=== PATIENT | female | born 1955 | race Caucasian/White ===

== ENCOUNTER 2020-09-07 19:04 | Inpatient (IN) | payer OTHER ==
[~2020-09-07] VITALS: Ht 157.5 cm; Wt 130.6 kg
--- NOTE | 2020-09-07 19:10 | NUR ---
[facility] FROM [place] FOR PE STUDIES. PT TO ED IN [place] TODAY W/ CO SOB X "A FEW WEEKS" HX COPD AND CHF. PT WEARS 4L O2 BY NC. SPO2 80'S ON BASELINE O2 UPON ARRIVAL IN [place]. DDIMER POSITIVE AT PRIOR FACILITY. PT GIVEN ASA, LOVENOX, BREATHING TX, AND ZITHROMAX BRAND LEADER. PT REPORTS HAVING TO USE HER RESCUE INHALER UP TO FOUR TIMES/DAY W LITTLE IMPROVEMENT IN SOB OR WORK OF BREATHING. UPON ARRIVAL PT A&OX4, RESPIRATIONS RAPID AND MODERATELY LABORED. PT SPEAKING IN 5 WORD SENTENCES WITH FREQUENT FORCED EXHALATION. SPO2 90-91% ON 5L BY OXYMASK. RLL COARSE; +1 NON-PITTING BLE EDEMA. PT REPORTS IMPROVED S/S AFTER RX GIVEN IN [place]. PT DENIES CP, LOWER EXTREMITY PAIN OR SWELLING, OR FEVER. REPORTS PRODUCTIVE COUGH WITH YELLOW SPUTUM SINCE MARCH. BP/SPO2/ECG MONITORING IN PLACE. SINUS TACH ON MONITOR. EKG COMPLETED UPON ARRIVAL.
[2020-09-07] MEDS ORDERED: EPLE50TA3 PO (20:46)
[2020-09-07] MEDS ORDERED: ALBU8TAB PO (20:46)
[2020-09-07] MEDS ORDERED: DOXA1TAB2 PO (20:46)
[2020-09-07] MEDS ORDERED: TORS20TA2 PO (20:46)
[2020-09-07] MEDS ORDERED: CAND32TA7 PO (20:46)
[2020-09-07] MEDS ORDERED: VERA120T8 PO (20:46)
[2020-09-07] MEDS ORDERED: LORA-247 PO (20:46)
--- NOTE | 2020-09-07 21:09 | NUR ---
PT SITTING UP IN [place] ON CELL PHONE. NAD NOTED. SPO2 >90% ON SUPPLEMENTAL O2. RR 25, IMPROVEMENT IN WOB NOTED.
[2020-09-07] MEDS ORDERED: FUROSEMIDE 20 MG/2 ML ONE (21:26)
[2020-09-07] MEDS ORDERED: FUROSEMIDE 20 MG/2 ML IV ONE (21:30)
--- NOTE | 2020-09-07 21:31 | NUR ---
PT MEDICATED PER [facility]. POTASSIUM 4.6 AT [facility] TODAY. PURWICK IN PLACE
[2020-09-07] MEDS ORDERED: CEFTRIAXONE PMX 1GM/50ML 50 ML IV ONE (22:00)
[2020-09-07] MEDS ORDERED: CEFTRIAXONE PMX 1GM/50ML 50 ML ONE (22:17)
--- NOTE | 2020-09-07 22:19 | NUR ---
TP RN: Spoke with Pat at [facility]. Pt has hometown health insurance and Pat stated to have pt admitted here due to their tier 2 status. Pt to be admitted.
--- NOTE | 2020-09-07 22:22 | NUR ---
ABX INITIATED. BC X2 DRAWN PRIOR TO ADMIN
[2020-09-07 22:51] VITALS: BP 112/70
[2020-09-07] MEDS ORDERED: hydrALAzine 20 MG/ML, 1ML IVPush PRN (23:30)
[2020-09-07] MEDS ORDERED: ONDANSETRON 2MG/ML, 2ML IVPush PRN (23:30)
[2020-09-07] MEDS ORDERED: LORATADINE 10 MG TABLET PO SCH (23:30)
[2020-09-07] MEDS ORDERED: ACETAMINOPHEN 325 MG TABLET PO PRN (23:30)
[2020-09-08] MEDS ORDERED: CEFTRIAXONE PMX 1GM/50ML 50 ML IV ONE
[2020-09-08] MEDS: methylPREDNISolone SOD SUCC 40 MG/ML IVPush SCH ×5 (00:04→23:37)
[2020-09-08] MEDS: HEPARIN 5,000 UNITS/ML, 1ML SQ SCH ×4 (00:04→23:37)
[2020-09-08] MEDS: DOXAZOSIN 1MG TABLET PO SCH ×2 (00:04→20:18)
[2020-09-08] MEDS: DOXYCYCLINE 100 MG in DEXTROSE 5% 250 ML IV SCH ×3 (00:44→23:38)
[2020-09-08 01:08] VITALS: BP 98/50
[2020-09-08] MEDS ORDERED: ALBUTEROL HFA 90 MCG/SPRAY INH PRN (03:00)
[2020-09-08 04:48] LABS: ANION GAP 4 mmol/L (5-15); CALCIUM 9.2 mg/dL (8.5-10.1); CHLORIDE 108 mmol/L (98-107); CREATININE 1.37 mg/dL (0.55-1.02)
[2020-09-08 04:52] LABS: BASOPHILS % (AUTO) 0 % (0-1); EOSINOPHILS % (AUTO) 0 % (1-7); LYMPHOCYTES % (AUTO) 2 % (22-44); MEAN CORPUSCULAR HGB CONC 31.9 g/dL (32.4-35.8); MEAN PLATELET VOLUME 8.5 fL (7.4-10.4); MONOCYTES % (AUTO) 1 % (2-9); NEUTROPHILS % (AUTO) 97 % (42-75); PLATELET COUNT 318 x10^3/uL (130-400); RED BLOOD COUNT 3.78 x10^6/uL (3.82-5.3); RED CELL DISTRIBUTION WIDTH 14.9 % (9.6-15.2)
[2020-09-08 05:53] LABS: ANISOCYTOSIS 1+; MD MORPH REVIEW ONLY
[2020-09-08 05:54] LABS: <PLATELET ESTIMATE> ADEQUATE; <PLT MORPHOLOGY> NORMAL PLT MORPH; PMNS WITH VACUOLES 1+; POLYCHROMASIA 1+; SMALL PLATELETS 1+
[2020-09-08 07:55] VITALS: BP 128/73
[2020-09-08] MEDS: TIOTROPIUM BROMIDE 18 MCG/INH INH SCH (10:01)
[2020-09-08] MEDS: FLUTICASONE/VILANTEROL 100-25MCG/INH INH SCH ×2 (10:01→11:30)
[2020-09-08] MEDS: VERAPAMIL ER 120MG TABLET.ER PO SCH (10:02)
[2020-09-08] MEDS: LORATADINE 10 MG TABLET PO SCH (10:02)
[2020-09-08] MEDS: LOSARTAN 100 MG TAB PO SCH (10:02)
[2020-09-08] MEDS: TORSEMIDE 20 MG TABLET PO SCH ×2 (10:02→10:06)
[2020-09-08] MEDS: DOXYCYCLINE 100MG TABLET PO SCH ×2 (10:02→20:18)
[2020-09-08] MEDS: EPLERENONE 50 MG TABLET PO SCH (12:03)
[2020-09-08 12:30] VITALS: BP 134/74
[2020-09-08 19:51] VITALS: BP 139/78
[2020-09-08 20:15] VITALS: BP 140/76
[2020-09-08] MEDS ORDERED: CEFTRIAXONE PMX 1GM/50ML 50 ML IV SCH (22:00)
[2020-09-08] MEDS: CEFTRIAXONE PMX 1GM/50ML 50 ML IV SCH (22:16)
[2020-09-09 01:53] VITALS: BP 131/73
[2020-09-09] MEDS: methylPREDNISolone SOD SUCC 40 MG/ML IVPush SCH ×4 (06:09→23:57)
[2020-09-09 06:24] VITALS: BP 115/72
[2020-09-09] MEDS: LOSARTAN 100 MG TAB PO SCH (09:00)
[2020-09-09] MEDS: EPLERENONE 50 MG TABLET PO SCH (09:00)
[2020-09-09] MEDS: FLUTICASONE/VILANTEROL 100-25MCG/INH INH SCH ×2 (09:00)
[2020-09-09] MEDS: TIOTROPIUM BROMIDE 18 MCG/INH INH SCH (09:00)
[2020-09-09] MEDS: DOXYCYCLINE 100MG TABLET PO SCH ×2 (10:42→20:27)
[2020-09-09] MEDS: HEPARIN 5,000 UNITS/ML, 1ML SQ SCH ×3 (10:42→23:58)
[2020-09-09] MEDS: TORSEMIDE 20 MG TABLET PO SCH (10:42)
[2020-09-09] MEDS: LORATADINE 10 MG TABLET PO SCH (10:43)
[2020-09-09] MEDS: VERAPAMIL ER 120MG TABLET.ER PO SCH (10:43)
[2020-09-09 12:00] VITALS: BP 112/73
[2020-09-09] MEDS: DOXYCYCLINE 100 MG in DEXTROSE 5% 250 ML IV SCH ×2 (12:24→23:57)
[2020-09-09 19:22] VITALS: BP 112/68
[2020-09-09] MEDS: DOXAZOSIN 1MG TABLET PO SCH (20:27)
[2020-09-09] MEDS: CEFTRIAXONE PMX 1GM/50ML 50 ML IV SCH (22:00)
[2020-09-10 02:00] VITALS: BP 109/62
[2020-09-10] MEDS: methylPREDNISolone SOD SUCC 40 MG/ML IVPush SCH ×4 (05:03→23:40)
[2020-09-10 05:37] LABS: BASOPHILS % (AUTO) 0 % (0-1); EOSINOPHILS % (AUTO) 0 % (1-7); LYMPHOCYTES % (AUTO) 2 % (22-44); MEAN CORPUSCULAR HEMOGLOBIN 30.2 pg (27.0-34.8); MEAN CORPUSCULAR HGB CONC 32.6 g/dL (32.4-35.8); MEAN PLATELET VOLUME 8.4 fL (7.4-10.4); MONOCYTES % (AUTO) 4 % (2-9); NEUTROPHILS % (AUTO) 94 % (42-75); PLATELET COUNT 339 x10^3/uL (130-400); RED BLOOD COUNT 4.14 x10^6/uL (3.82-5.3); RED CELL DISTRIBUTION WIDTH 14.4 % (9.6-15.2)
[2020-09-10 05:52] LABS: ANION GAP 4 mmol/L (5-15); CALCIUM 9.2 mg/dL (8.5-10.1); CHLORIDE 102 mmol/L (98-107)
[2020-09-10 05:54] LABS: CREATININE 1.25 mg/dL (0.55-1.02)
[2020-09-10 06:16] LABS: MD SCAN
[2020-09-10 08:53] VITALS: BP 116/70
[2020-09-10] MEDS: FLUTICASONE/VILANTEROL 100-25MCG/INH INH SCH ×2 (09:00→09:01)
[2020-09-10] MEDS: HEPARIN 5,000 UNITS/ML, 1ML SQ SCH ×3 (09:00→23:41)
[2020-09-10] MEDS: TIOTROPIUM BROMIDE 18 MCG/INH INH SCH (09:00)
[2020-09-10] MEDS: LORATADINE 10 MG TABLET PO SCH (09:01)
[2020-09-10] MEDS: TORSEMIDE 20 MG TABLET PO SCH (09:01)
[2020-09-10] MEDS: VERAPAMIL ER 120MG TABLET.ER PO SCH (09:01)
[2020-09-10] MEDS: DOXYCYCLINE 100MG TABLET PO SCH ×2 (09:01→20:25)
[2020-09-10] MEDS: EPLERENONE 50 MG TABLET PO SCH (10:39)
[2020-09-10] MEDS: DOXYCYCLINE 100 MG in DEXTROSE 5% 250 ML IV SCH ×2 (12:30→23:40)
[2020-09-10 14:41] VITALS: BP 125/74
[2020-09-10 19:39] VITALS: BP 149/81
[2020-09-10] MEDS: DOXAZOSIN 1MG TABLET PO SCH (20:25)
[2020-09-10] MEDS: CEFTRIAXONE PMX 1GM/50ML 50 ML IV SCH (22:24)
[2020-09-11 01:15] VITALS: BP 146/75
[2020-09-11] MEDS: methylPREDNISolone SOD SUCC 40 MG/ML IVPush SCH ×4 (05:23→23:44)
[2020-09-11 06:37] LABS: BASOPHILS % (AUTO) 0 % (0-1); EOSINOPHILS % (AUTO) 0 % (1-7); LYMPHOCYTES % (AUTO) 2 % (22-44); MEAN CORPUSCULAR HEMOGLOBIN 30.1 pg (27.0-34.8); MEAN CORPUSCULAR HGB CONC 32.5 g/dL (32.4-35.8); MEAN PLATELET VOLUME 8.8 fL (7.4-10.4); MONOCYTES % (AUTO) 5 % (2-9); NEUTROPHILS % (AUTO) 93 % (42-75); PLATELET COUNT 319 x10^3/uL (130-400); RED BLOOD COUNT 4.16 x10^6/uL (3.82-5.3); RED CELL DISTRIBUTION WIDTH 14.4 % (9.6-15.2)
[2020-09-11 07:02] LABS: MD NO
[2020-09-11] MEDS: HEPARIN 5,000 UNITS/ML, 1ML SQ SCH ×2 (07:35→17:11)
[2020-09-11 07:40] VITALS: BP 123/57
[2020-09-11] MEDS: FLUTICASONE/VILANTEROL 100-25MCG/INH INH SCH ×2 (09:00→11:01)
[2020-09-11] MEDS: TIOTROPIUM BROMIDE 18 MCG/INH INH SCH (09:00)
[2020-09-11] MEDS: TORSEMIDE 20 MG TABLET PO SCH (09:00)
[2020-09-11 09:30] LABS: ANION GAP 5 mmol/L (5-15); CALCIUM 8.9 mg/dL (8.5-10.1); CHLORIDE 101 mmol/L (98-107); CREATININE 1.35 mg/dL (0.55-1.02)
[2020-09-11 09:33] LABS: ALBUMIN 2.7 g/dL (3.4-5.0)
[2020-09-11] MEDS: DOXYCYCLINE 100 MG in DEXTROSE 5% 250 ML IV SCH (10:56)
[2020-09-11] MEDS: VERAPAMIL ER 120MG TABLET.ER PO SCH (11:00)
[2020-09-11] MEDS: DOXYCYCLINE 100MG TABLET PO SCH (11:01)
[2020-09-11] MEDS: EPLERENONE 50 MG TABLET PO SCH (11:01)
[2020-09-11] MEDS: LORATADINE 10 MG TABLET PO SCH (11:01)
[2020-09-11 12:15] VITALS: BP 125/78
[2020-09-11 19:58] VITALS: BP 156/78
[2020-09-11] MEDS: DOXYCYCLINE 100MG CAP PO SCH (20:40)
[2020-09-11] MEDS: DOXAZOSIN 1MG TABLET PO SCH (20:41)
[2020-09-11] MEDS: CEFDINIR 300 MG CAPSULE PO SCH (20:41)
[2020-09-11] MEDS: OMEPRAZOLE 20 MG CAPSULE.DR PO SCH (20:41)
[2020-09-12] MEDS: HEPARIN 5,000 UNITS/ML, 1ML SQ SCH ×2 (01:44→10:14)
[2020-09-12 01:45] VITALS: BP 140/76
[2020-09-12] MEDS: methylPREDNISolone SOD SUCC 40 MG/ML IVPush SCH ×2 (05:14→11:30)
[2020-09-12 06:50] VITALS: BP 121/68
[2020-09-12] MEDS: TIOTROPIUM BROMIDE 18 MCG/INH INH SCH (09:00)
[2020-09-12] MEDS: TORSEMIDE 20 MG TABLET PO SCH (09:00)
[2020-09-12] MEDS: FLUTICASONE/VILANTEROL 100-25MCG/INH INH SCH (10:14)
[2020-09-12] MEDS: CEFDINIR 300 MG CAPSULE PO SCH (10:14)
[2020-09-12] MEDS: VERAPAMIL ER 120MG TABLET.ER PO SCH (10:14)
[2020-09-12] MEDS: OMEPRAZOLE 20 MG CAPSULE.DR PO SCH (10:14)
[2020-09-12] MEDS: LORATADINE 10 MG TABLET PO SCH (10:15)
[2020-09-12] MEDS: DOXYCYCLINE 100MG CAP PO SCH (10:16)
[2020-09-12] MEDS ORDERED: DOXY100C2 PO (10:26)
[2020-09-12] MEDS ORDERED: FLUT1AER INH (10:26)
[2020-09-12] MEDS ORDERED: FLU VACC QS2020-21(6MOS UP)/PF 60MCG/0.5 ML SYR IM-VACC ONE (10:30)
[2020-09-12] MEDS: EPLERENONE 50 MG TABLET PO SCH (11:35)
== END 2020-09-12 12:00 | disposition home or self-care (01) | DRG 291 ==
LOC: ED 21:41 → EDIP 21:50 → 4WST 22:38 → DCLOUNGE 09-12 11:48
PROVIDERS: ADMIT Family Medicine; ATTEND Family Medicine
DX: I13.0 Hypertensive heart and chronic kidney disease with heart failure and stage 1 through stage 4 chronic kidney disease, or unspecified chronic kidney disease (principal); I50.43 Acute on chronic combined systolic (congestive) and diastolic (congestive) heart failure; J15.9 Unspecified bacterial pneumonia; J44.0 Chronic obstructive pulmonary disease with (acute) lower respiratory infection; J44.1 Chronic obstructive pulmonary disease with (acute) exacerbation; Z68.43 Body mass index [BMI] 50.0-59.9, adult; N17.9 Acute kidney failure, unspecified; Z88.5 Allergy status to narcotic agent; Z88.2 Allergy status to sulfonamides; Z88.8 Allergy status to other drugs, medicaments and biological substances; E66.01 Morbid (severe) obesity due to excess calories; Z66 Do not resuscitate; N18.9 Chronic kidney disease, unspecified; Z82.3 Family history of stroke; Z82.49 Family history of ischemic heart disease and other diseases of the circulatory system; Z82.5 Family history of asthma and other chronic lower respiratory diseases; Z87.891 Personal history of nicotine dependence; Z99.81 Dependence on supplemental oxygen
CPT/HCPCS: 36415; 71045; 78582; 80048; 80069; 83735; 84443; 85025; 85379; 87040; 87070; 87205; 90686; 93005; 93306; 96365; 99285; G0378; J0696; J1644; J7060; A9540; A9558; J1940; J2920